=== PATIENT | male | born 1995 | race Caucasian/White ===

== ENCOUNTER 2023-07-07 08:06 | Outpatient (AMB) | payer BC, SELFPAY ==
--- NOTE | 2023-07-07 08:18 | MHC.PC.OV ---
Vital Signs 07/07/23 08:21 Height 5 ft 8 in Weight 199 lb BMI 30.3 BP 130/84 Blood Pressure Location Lt brachial Position Sitting Pulse 55 Pulse Source Pulse Oximeter Pulse Oximetry (%) 98 Oxygen Delivery Method Room Air Intake Visit Reasons: Annual PE Intake Note: Patient here for physical exam. Allergies No Known Allergies Allergy (Verified 07/07/23 08:43) Medication List - Last Reconciled 07/07/23 by VIKRAM Mccall No Known Home Meds Tobacco use date assessed: 07/07/23 Dental Screening Dental Screen Date: 07/07/23 Did you have a dental visit in the last 12 months?: Yes Did you have a dental problem in the last 6 months where you did not have access to dental care?: No Was dental information given to patient?: Patient has dentist HPI Annual PE HPI Details Pt is here for a PE. Will order labs. 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 1. Little interest or pleasure in doing things: not at all 2. Feeling down, depressed, or hopeless: several days 3. Trouble falling or staying asleep, or sleeping too much: not at all 4. Feeling tired or having little energy: more than half the days 5. Poor appetite or overeating: not at all 6. Feeling bad about yourself - or that you are a failure or have let yourself or your family down: more than half the days 7. Trouble concentrating on things, such as reading the newspaper or watching television: not at all 8. Moving or speaking so slowly that other people could have noticed. Or the opposite - being so fidgety or restless that you have been moving around a lot more than usual: not at all 9. Thoughts that you would be better off or of hurting yourself in some way: not at all Total score: 5 Depression Screening Interpretation: Negative Depression Screening Done: Yes 15268 - PHQ-9 Billing: Yes Source: Developed by Drs. Javier Rosenberg, Aissatou Ayon, Du Weheler and colleagues, with an educational vandana from [employer]. Thrive Questionnaire Date Thrive assessed: 07/07/23 I am a: Patient What is your living situation today?: I have a steady place to live Within the past 12 months, did the food you bought not last and you didn't have the money to get more?: Never true Within the past 12 months, did you worry whether your food would run out before you got money to buy more?: Never true Do you have trouble paying for medicines?: No Do you have trouble getting transportation to medical appointments?: No Do you have trouble paying your heating and electricity bill?: No Do you have trouble taking care of your child, family member or friend?: No Do you have trouble with day-to-day activities such as bathing, preparing meals, shopping, managing finances, etc.?: No Are you currently unemployed and looking for a job?: No Are you interested in more education?: No Currently or been in a relationship where the following occur: I choose not to answer this question THRIVE Score: 0 AUDIT C Alcohol Use Questionnaire (AUDIT-C) 1. How often do you have a drink containing alcohol?: 2-3 times a week 2. How many drinks containing alcohol do you have on a typical day when you are drinking?: 3 or 4 3. How often do you have six or more drinks on one occasion?: Never Total Score: 4 Score Reviewed/Action Taken: No CIELO-7 AMB Questionnaire CIELO-7 Date CIELO - 7 assessed: 07/07/23 Feeling nervous, anxious, or on edge: 0 = Not at all Not being able to stop or control worryin = Not at all Worrying too much about different things: 1 = Several days Trouble relaxin = Several days Being so restless that it is hard to sit still: 0 = Not at all Becoming easily annoyed or irritable: 1 = Several days Feeling afraid as if something awful might happen: 0 = Not at all Total CIELO-7 score (0-4 normal; 5-9 mild; 10-14 moderate; 15-21 severe): 3 Source: Developed by Drs. Javier Rosenberg, Aissatou Ayon, Du Wheeler and colleagues, with an educational vandana from [employer]. CIELO-7 Assessment Billing CIELO-7 Assessment Tool: CIELO-7 Assessment 19774 Review of Systems Const Denies chills and Denies fever(s) Eyes Denies blurry vision ENT Denies vertigo, Denies dizziness and Denies sore throat Card Denies chest pain at rest, Denies chest pain with activity, Denies diaphoresis, Denies dyspnea and Denies dyspnea on exertion Resp Denies cough, Denies dyspnea, Denies dyspnea on exertion and Denies wheezing GI Denies abdominal pain, Denies melena, Denies hematochezia, Denies constipation, Denies diarrhea and Denies loose stools Denies hematuria Musc Denies numbness and Denies tingling Skin/Breast Denies lesions Neuro Denies vertigo, Denies dizziness, Denies numbness and Denies tingling Psych Denies anxiety, Denies depression, Denies homicidal ideation, Denies suicidal ideation and Denies other (substance abuse) Aller/Immun Denies wheezing Physical exam (Primary Care) Vital Signs: Last Vital Signs Pulse 55 07/07/23 08:21 BP 130/84 07/07/23 08:21 Pulse Ox 98 07/07/23 08:21 Oxygen Delivery Method Room Air 07/07/23 08:21 BMI result Body Mass Index 30.3 Tobacco/Smoking Status: Tobacco use Status Tobacco use date assessed 07/07/23 07/07/23 08:25 Patient Tobacco Use Status Never used Tobacco 07/07/23 08:19 e-Cigarette/Vaping Use Never Used 07/07/23 08:19 PHQ-9: PHQ-9 Score PHQ-9: Total score 5 07/07/23 08:29 Depression Screening Interpretation: Negative Thrive Assessment: Date of Thrive Assessment Date Thrive assessed 07/07/23 07/07/23 08:25 Currently or been in a relationship where the following occur: I choose not to answer this question Const General: cooperative Nutritional Appearance: well nourished Orientation/consciousness: patient oriented x3 HENMT Head: Yes normal to inspection, Yes normocephalic and Yes atraumatic Ears: TM's normal bilaterally Eyes General: appearance normal, both eyes and all related structures Alignment and Position: alignment normal and position normal Neck Neck: Yes normal visual inspection and Yes no lymphadenopathy Thyroid: Thyroid normal Resp Effort & Inspection: normal respiratory effort Auscultation: clear to auscultation bilaterally Cardio Rate: regular rate Rhythm: regular rhythm Heart sounds: S1 normal heart sound present, S2 normal heart sound present and no murmurs GI Palpation (GI): Soft to palpation and nontender Auscultation: normal bowel sounds Male General Exam: Yes normal external exam Penis: normal penis Scrotum: scrotum normal, testes descended bilaterally and no inguinal hernias Testes: no testicular mass Skin Rashes: no rashes Neuro General: patient oriented x3, moves all extremities, no focal motor deficits and deep tendon reflexes 2+ bilaterally Romberg Test: Negative Psych Appearance: grossly normal Mental Status: mental status grossly normal Speech and movement: Normal speech and movement present Affect: normal affect Attitude: cooperative Thought process: Normal thought process present Thought content: Normal thought content present Insight: Good insight present (Psych) Judgement: Good judgement present (Psych) Assessment and Plan Assessment & Plan (1) Physical exam: Code(s): Z. - Encounter for general adult medical examination without abnormal findings Plan: Labs ordered Plan The patient agreed to the use of a medical illustrator for this encounter. Scribed for VIKRAM [place] by Marilu Witt medical illustrator, on 07/07/2023 at 08:30 EST. Orders: Orders Complete Blood Count Auto Diff Today Z00.00 - Encounter for general adult medical examination without abnormal findings Comprehensive [place]. Panel Fast Today Z00.00 - Encounter for general adult medical examination without abnormal findings TSH reflex Free T4 Today Z00.00 - Encounter for general adult medical examination without abnormal findings UA CC w/rflx Micro + Cult Today Z00.00 - Encounter for general adult medical examination without abnormal findings Lipid Panel Today Z00.00 - Encounter for general adult medical examination without abnormal findings Coding Level of Care Code Est Pt Prev Care 18-39y(36785) Diagnoses Physical exam Z00. Additional Codes CIELO-7 Assessment Billing - CIELO-7 Assessment Tool: CIELO-7 Assessment 69827 ([id number])
[2023-07-07 08:21] VITALS: BP 130/84; PULSE 55; O2SAT 98; BMI 30.3
== END 2023-07-07 08:38 | disposition home or self-care (01) ==
PROVIDERS: Visit Provider Nurse Practitioner Family
DX: Z00.00 Encounter for general adult medical examination without abnormal findings (principal)
CPT/HCPCS: 99395

== ENCOUNTER 2024-04-17 07:30 | Outpatient (AMB) | payer BC, SELFPAY ==
--- NOTE | 2024-04-17 07:33 | MHC.OFFVIS ---
Intake Visit Reasons: Discuss depression iPhone Allergies No Known Allergies Allergy (Verified 07/07/23 08:43) Medication List - Last Reconciled 04/17/24 by MARIELLE Mccall sertraline 25 mg PO DAILY HPI HPI Discuss depression [place] [phone]: Details: History of Present Illness The patient is a 28-year-old male presenting with ongoing Major Depressive Disorder. 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 These stressors have contributed to the exacerbation of his depression. In the last month, the patient experienced suicidal ideation, prompting an increase in the frequency of his therapy sessions from biweekly to weekly. The patient denies any active suicidal or homicidal ideation at present. He has spoken with his therapist about possibly starting medication. Currently, the patient holds numbers for crisis lines and is considering inpatient care, particularly for first responders like himself, which he has been discussing with his therapist. Review of Systems - Psychiatric: Reports stress related to work and family responsibilities; denies active suicidal ideation; denies homicidal ideation. - General: Denies fever and chills. - Respiratory: Denies shortness of breath. - Cardiovascular: Denies chest pain. PE -no current acute distress noted A+Ox3 Plan - Initiate a low dose of sertraline for management of Major Depressive Disorder. - Continue current therapy sessions on a weekly basis. - Plan a follow-up telehealth appointment in approximately six weeks to two months. - Provide the patient with crisis line numbers for emergencies and reinforce their use if needed. - Encourage ongoing discussions with the patient's therapist regarding potential inpatient care, especially focusing on options for first responders. Patient was informed and verbally consented to the use of an ambient scribe for clinic note documentation during this visit. Discussion Notes I discussed with the patient the initiation of sertraline at a low dose to manage his depression symptoms. The benefits of medication, including mood stabilization and reduction in depressive symptoms, were discussed. I informed him of the potential side effects, such as gastrointestinal upset, and the possibility of gradual dose adjustments. We talked about the importance of maintaining regular therapy sessions and utilizing crisis lines if necessary. I recommended considering inpatient care tailored for first responders and advised him to continue discussing these options with his therapist. We agreed on a follow-up telehealth appointment within six weeks to two months to reassess and adjust the treatment plan as required. Patient Instructions - Start taking sertraline as prescribed. - Continue attending weekly therapy sessions. - Call crisis lines if experiencing suicidal thoughts or in distress. - Discuss the potential for inpatient care with your therapist. - Schedule a follow-up telehealth appointment in six to eight weeks. - Monitor for side effects and report any concerns. 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 ) Cognitive needs: No Hearing needs: No Vision needs: No Telehealth Telehealth Telehealth Platform: [employer] Location of provider rendering services: practice address Location of patient: address on file Patient Identification confirmed using: Name, : Yes Telehealth method: video Patient verbally consented to treatment: Yes Patient verbally consented to billing insurance company: Yes Patient informed of any privacy concerns related to visit: Yes Minutes spent on Phone/Video with Pt.: 15 Assessment & Plan Assessment & Plan (1) Depression: Code(s): F32.A - Depression, unspecified Category: Medical Plan . Medications: New sertraline 25 mg PO DAILY 30 tabs 3RF Coding Level of Care Code Tele Est Pt Level 3 (50344) Diagnoses Depression F32.A
--- OUTSIDE RECORDS SUMMARY | 2024-04-17 07:33 | XMS_ITS | Clinical Summary ---
Author Organization [facility] Address [address] [place] [phone] Phone Care Team Providers Care Show Dog Trainer Name Role Phone Unavailable Primary Care Provider Unavailabl e Allergies No known active allergies Medications No known medications Immunizations Immunization Administration Dates Next Due DTaP 06/22/2001, 8,01/10/1997, 997,1996 HPV Vaccine 9 Valent 06/30/2015,10/22/2014 HPV, Quadrivalent 10/19/2013 Hep B, ped/adol 04/12/1997,1996,1996 Hib (PRP-T) 10/24/1997, 7,1996, 997 IPV 06/22/2001,1996,1996 Influenza, intranasal, trivalent 11/18/2009 MMR 06/22/2001,10/24/1997 Meningococcal Conj (Menactra) MCV4P 10/19/2013,0 10/25/2008 OPV 07/09/1997 PPD Test 05/17/2017,04/21/2017 Tdap 10/25/2008 Varicella 10/25/2008,07/09/1997 Family History Relation Name Status Comments Father Alive Father's Brother Alive Maternal Grandmother Alive Mother Alive Mother: allergi es, mouth lymphoma (now resolved), migraine. Adopted, so bio family hx not available Other 1 Alive Other 2 Alive Other 3 Alive Other 4 Alive allergies, mout h lymphoma (now resolved), migraine. Adopted, so bio family hx not available Other 5 Alive kidney issue ([facility]) Social History Tobacco Use Types Packs/Day Years Used Date Smoking Tobacco: Never Assessed Sex and Gender Information Value Date Recorded Sex Assigned at Not on file Legal Sex Male 11:13 PM EST Gender Identity Not on file Sexual Orientation Not on file Last Filed Vital Signs Vital Sign Reading Time Taken Comments Blood Pressure 118/62 07/02/2016 12:00 AM EDT Pulse 77 07/02/2016 12:00 AM EDT Temperature 37.2 ??C (98.9 ??F) 05/17/2017 11:13 AM E DT Respiratory Rate - - Oxygen Saturation 96% 05/19/2016 12:00 AM EDT Inhaled Oxygen Concentration - - Weight 89.6 kg (197 lb 9.6 oz) 07/02/2016 12:00 AM EDT Height 175.3 cm (5' 9 ) 07/02/2016 12:00 AM EDT Body Mass Index 29.18 07/02/2016 12:00 AM EDT Plan of Treatment Health Maintenance Due Date Last Done Comments DTaP,Tdap,and Td Vaccines (7 - Td or Tdap) 10/25/2018 10/25/2008, 06/22/2001, 12/31/1997, Additional history exists Influenza Vaccines (#1) 2023 11/18/2009 COVID-19 Vaccine ( season) 2023 Hepatitis B Vaccines Completed 04/12/1997, 1996, 1996 HIB Vaccines Completed 10/24/1997, 12/29, 1996, Additional history exists IPV Vaccines Completed 06/22/2001, 06/28, 1996, Additional history exists MMR Vaccines Completed 06/22/2001, 10/24/1997 Varicella Vaccines Completed 10/25/2008, 07/09/1997 Meningococcal Vaccine Completed 10/19/2013, 009 HPV Vaccines Completed 06/30/2015, 09/29, 10/19/2013 Hepatitis A Vaccines Aged Out No long er eligible based on patient's age to complete this topic Men B Vaccine Aged Out No longer elig ible based on patient's age to complete this topic Pneumococcal Vaccine Aged Out No long er eligible based on patient's age to complete this topic
== END 2024-04-17 07:48 | disposition home or self-care (01) ==
LOC: HO.HMCC 07:31
PROVIDERS: PCP Nurse Practitioner Family; Visit Provider Nurse Practitioner Family
DX: F32.A Depression, unspecified (principal)

== ENCOUNTER → 2024-04-17 07:30 | Outpatient (BNVA) | payer BC, SELFPAY | PROVIDERS: PCP Nurse Practitioner Family; Visit Provider Nurse Practitioner Family ==

== ENCOUNTER 2024-05-31 07:37 | Outpatient (AMB) | payer BC, SELFPAY ==
--- OUTSIDE RECORDS SUMMARY | 2024-05-31 07:40 | XMS_ITS | Clinical Summary ---
Author Organization [facility] Address [address] [place] [phone] Phone Care Team Providers Care Coal Handler Name Role Phone Unavailable Primary Care Provider [...]
--- OUTSIDE RECORDS SUMMARY | 2024-05-31 07:40 | XMS_ITS | Encounter Summary ---
Author Organization [facility] Address [address] [place] [phone] Phone Care Team Providers Care Single Resource Boss Name Role Phone Jovan Gupta MD Primary Care Provider Unavailabl e Encounter Details Date Type Department Care Team (Late st Contact Info) Description 10/06/2016 Conversion Encounter [facility] - [address], [address] [place] [address] Jovan Gupta MD Social History Tobacco Use Types Packs/Day Years Used Date Smoking Tobacco: Never Assessed Sex and Gender Information Value Date Recorded Sex Assigned at Not on file Legal Sex Male 11:13 PM EST Gender Identity Not on file Sexual Orientation Not on file documented as of this encounter Plan of Treatment Not on file documented as of this encounter Visit Diagnoses Not on filedocumented in this encounter Care Teams Single Resource Boss Relationship Specialty Start Date End Date Jovan Gupta MD PCP - General 04/20/16 08/24/20 documented as of this encounter
--- NOTE | 2024-05-31 07:59 | MHC.PC.OV ---
Intake Visit Reasons: 6 weeks f/up-telehealth Allergies No Known Allergies Allergy (Verified 05/31/24 07:59) Medication List - Last Reconciled 05/31/24 by MARIELLE Mccall sertraline 25 mg PO DAILY Tobacco use date assessed: 07/07/23 Dental Screening Dental Screen Date: 07/07/23 HPI 6 weeks f/up-telehealth HPI Details History of Present Illness The patient is a 28-year-old male presenting for follow-up on Major Depressive Disorder. The patient was initially managed with sertraline due to depressive symptoms for three weeks and has since denied experiencing any suicidal or homicidal ideations. He discontinued the medication, attributing the lapse to forgetfulness due to extensive work commitments. The patient did notice an improvement in his depressive symptoms while on sertraline but ceased therapy prematurely. He acknowledges the importance of taking the medication regularly and has devised strategies such as carrying extra medication to work to facilitate adherence. A regimen of sertraline 25 mg will be resumed, with plans for reassessment in two months. Review of Systems - Psychological: Denies any suicidal ideation. Denies any homicidal ideation. Plan The patient will be restarted on sertraline at a dose of 25 mg for the management of Major Depressive Disorder. This decision is based on the initial positive response noted before the discontinuation of the medication. The importance of adherence to the regimen has been thoroughly discussed, and strategies such as keeping an extra supply at work have been suggested to assist in compliance. A follow-up appointment is arranged in two months to evaluate the response to the therapy and ensure the patient's continued progress. Discussion Notes During the consultation, I engaged with the patient regarding the management of Major Depressive Disorder with sertraline. We discussed the positive response he initially experienced with the medication, the reasons for discontinuation, and the importance of adherence to therapy. I ensured the patient understood the plan to resume sertraline at 25 mg and the strategies proposed to aid in maintaining a consistent medication routine. Furthermore, the plan includes a follow-up in two months to monitor progress and make necessary adjustments. The patient was informed to seek medical care should he experience any changes in his mental health status, especially the emergence of suicidal or homicidal ideations. Patient Instructions - Take sertraline 25 mg daily as prescribed. - Make efforts to remember your medication by placing it in a visible area at home and taking extras to work if necessary. - Follow up in two months for evaluation. - If any suicidal or homicidal thoughts occur, seek immediate medical attention. - Report any side effects or concerns with the medication. 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 Javier Rosenberg, Aissatou Ayon, Du Wheeler and colleagues, with an educational vandana from [employer]. Physical exam (Primary Care) Tobacco/Smoking Status: Tobacco use Status Tobacco use date assessed 07/07/23 07/07/23 08:25 Patient Tobacco Use Status Never used Tobacco 07/07/23 08:19 e-Cigarette/Vaping Use Never Used 07/07/23 08:19 Thrive Assessment: Date of Thrive Assessment Date Thrive assessed 07/07/23 07/07/23 08:25 Telehealth Telehealth Telehealth Platform: [facility] Location of provider rendering services: practice address Location of patient: address on file Patient Identification confirmed using: Name, : Yes Telehealth method: video Patient verbally consented to treatment: Yes Patient verbally consented to billing insurance company: Yes Patient informed of any privacy concerns related to visit: Yes Minutes spent on Phone/Video with Pt.: 10 Coding Level of Care Code Tele Est Pt Level 3 (79177) Diagnoses Depression F32.A Assessment & Plan Assessment & Plan (1) Depression: Code(s): F32.A - Depression, unspecified Category: Medical Plan .
== END 2024-05-31 08:25 | disposition home or self-care (01) ==
LOC: HO.HMCC 07:38
PROVIDERS: PCP Nurse Practitioner Family; Visit Provider Nurse Practitioner Family
DX: F32.A Depression, unspecified (principal)

== ENCOUNTER → 2024-08-23 07:02 | Outpatient (BNVA) | payer BC, SELFPAY | PROVIDERS: PCP Nurse Practitioner Family; Visit Provider Nurse Practitioner Family | DX: Z13.89 Encounter for screening for other disorder (principal) ==

== ENCOUNTER 2024-12-20 20:43 | Emergency (ER) | payer BC, SELFPAY ==
[2024-12-20 20:54] VITALS: BP 143/84; PULSE 108; RESP 16; TEMP 36.6; O2SAT 99; BMI 27.4
--- NOTE | 2024-12-20 21:31 | ED.GENADULT ---
HPI - General Adult General Chief complaint: Psychiatric Symptoms Stated complaint: [employer] member mental lalitha & PSTD requesting eval Time Seen by Provider: 12/20/24 21:26 Source: patient Mode of arrival: ambulatory Limitations: no limitations History of Present Illness ED Provider: John SANTO HPI narrative: Patient is a 29-year-old male with a history of depression presenting to the ED for evaluation of increased depression. The patient has recently bled through a ?messy divorce? and has been working increased hours to meet his child's poor obligation. 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 The patient was noted to be crying at work today, patient called his counselor and made an appointment at 07:45 tomorrow morning, however the patient's chief recommended patient come to the ED for evaluation. Patient has no acute somatic complaints. Related Data Previous Rx's ?Medication ?Instructions ?Recorded sertraline 100 mg tablet 100 mg PO DAILY #90 tabs 08/17/24 Allergies Allergy/AdvReac Type Severity Reaction Status Date / Time No Known Allergies Allergy Verified 12/20/24 21:06 Review of Systems Review of Systems: Yes all other systems are reviewed and are negative PMF Family History Family History (Reviewed 07/07/23 @ 08:30 by Chau Delacruz [facility]) Mother Mental health disorder Social History Social History Housing: [place] Patient Tobacco Use Status: Never used Tobacco e-Cigarette/Vaping Use: Never Used Second Hand Smoke Exposure: Yes (form fires) Advance Directives: No Advance Directives Information Provided: No Do you have a plan to hurt others: No Plan Current occupational status: employed Current occupation: [employer], [place] 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 Vital signs as documented. HEAD: Atraumatic, normocephalic. EYES: EOMs grossly intact, pupils equal, conjunctiva clear, no exudate. ENT: Nares patent, no discharge. Airway patent, no audible stridor, visible mucosa is pink and moist without noted lesions. NECK: trachea is midline, no obvious masses or gross abnormalities. CHEST: Symmetric movement, normal appearance. LUNGS: Non-labored work of breathing. CARDIAC: No evidence of hypoperfusion. ABDOMEN: Nondistended, no obvious injury. : Deferred. EXTREMITIES: Moves all extremities spontaneously without reported pain. No obvious injury or deformity noted. NEURO: Alert and oriented x3, CN II-XII appear grossly intact. Cerebellar Functioning grossly intact. Speech clear and appropriate. PSYCH: Depressed affect, but otherwise appropriate eye contact, fluid speech, with appropriate response to questioning. No reported suicidality or homicidality. Patient does not appear to be responding to internal stimuli. SKIN: Warm, dry, color appropriate. No rashes or lesions noted. Medications Administered Generic Name Dose Route Start Last Admin Trade Name Freq PRN Reason Stop Dose Admin Nicotine Polacrilex 2 mg 12/20/24 22:14 12/20/24 22:27 Nicotine Polacrilex 2 Mg Gum BUCCAL 2 mg Q2H PRN Administration Nicotine Cravings Discontinued Medications Generic Name Dose Route Start Last Admin Trade Name Freq PRN Reason Stop Dose Admin Lorazepam 1 mg 12/20/24 22:14 12/20/24 22:27 Lorazepam 1 Mg Tablet PO 12/20/24 22:15 1 mg ONCE ONE Administration Medical Decision Making Medical Decision Making MDM Narrative: 9:32 PM 12/20/2024 (Marlo SANTO): Patient is a 29-year-old male with a history of depression presenting to the ED for evaluation of increased depression. The patient has recently bled through a ?messy divorce? and has been working increased hours to meet his child's poor obligation. 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 The patient was noted to be crying at work today, patient called his counselor and made an appointment at 07:45 tomorrow morning, however the patient's chief recommended patient come to the ED for evaluation. Patient has no acute somatic complaints. The patient's exam is benign. The patient will be evaluated by crisis and pending clearance will be discharged to follow up with his counselor tomorrow morning as planned. 10:53 PM 12/20/2024 (Marlo SANTO): Patient has been evaluated and cleared by the crisis team, patient will be discharged to the care of his girlfriend who was picking him up, patient states he will follow up with his counselor tomorrow morning. Admission/Observation Consideration of admission/observation: Escalation of care including admission/observation considered Consult Healthcare Provider Management of the patient was discussed with: Glazier Artist (Care team) Lab Data MDM Lab Attestation statement: I reviewed the patient's lab results. 12/20/24 21:44 12/20/24 21:44 Labs: Lab Results 12/20/24 12/20/24 Range/Units 21:17 21:44 WBC 7.7 (4.8-10.8) X10*3/uL RBC 5.20 (4.60-5.80) X10*6/uL Hgb 15.1 (14.0-18.0) g/dl Hct 42.5 (42.0-52.0) % MCV 81.7 (80.0-98.0) fL MCH 29.0 (27.0-33.0) pg MCHC 35.5 (31.0-36.0) g/dl RDW 12.1 (11.0-16.0) % Plt Count 278 (160-400) X10*3/uL MPV 8.9 L (9.4-12.4) fL Immature Gran % (Auto) 0.3 (0.0-0.4) % Neut % (Auto) 56.7 (45-73) % Lymph % (Auto) 32.4 (20-40) % Carson % (Auto) 9.1 (2-11) % Eos % (Auto) 1.0 (0-4) % Baso % (Auto) 0.5 (0-2) % Lymph # (Auto) 2.5 (1.2-4.9) X10*3/uL Carson # (Auto) 0.7 (0.1-1.2) X10*3/uL Eos # (Auto) 0.1 (0.0-0.4) X10*3/uL Baso # (Auto) 0.0 (0.0-0.2) X10*3/uL Abs Immat Gran (auto) 0.02 (0.00-0.03) X10*3/uL Absolute Neuts (auto) 4.4 (2.0-8.3) x10*3/uL Absolute Nucleated RBC 0.000 (0.0-0.012) X10*3/uL Nucleated RBC % (auto) 0.0 (0.0-0.2) /100WBC Sodium 141 (135-145) mmol/L Potassium 4.1 (3.3-5.1) mmol/L Chloride 109 H (96-108) mmol/L Carbon Dioxide 24 (22-29) mmol/L Anion Gap 12 (12-20) BUN 15 (9-16) mg/dL Creatinine 0.96 (0.5-1.4) mg/dL Estim Creat Clear Calc 115.7 Estimated GFR > 60 Random Glucose 91 (60-115) mg/dL Calcium 9.2 (8.4-10.2) mg/dL Total Bilirubin 0.4 (0.0-1.0) mg/dL AST 22 (5-37) U/L ALT 28 (0-40) U/L Alkaline Phosphatase 63 (39-117) U/L Total Protein 7.4 (6.5-8.0) g/dL Albumin 4.8 (3.5-5.0) g/dL Urine Opiates Screen Not Detected (Not Detect) Ur Buprenorphine Scrn Not Detected (Not Detect) ng/mL Ur Oxycodone Screen Not Detected (Not Detect) ng/mL Urine Methadone Screen Not Detected (Not Detect) ng/mL Urine Fentanyl Screen Not Detected (Not Detect) Ur Barbiturates Screen Not Detected (Not Detect) Ur Phencyclidine Scrn Not Detected (Not Detect) Ur Amphetamines Screen Not Detected (Not Detect) U Benzodiazepines Scrn Not Detected (Not Detect) Urine Cocaine Screen Not Detected (Not Detect) U Marijuana (THC) Screen Not Detected (Not Detect) Ethyl Alcohol 11 mg/dL Discharge Plan Discharge Clinical Impression: Depression Patient Disposition: Home, Self-Care Instructions: Depression (ED) Additional Instructions: Thank you for choosing [facility] Emergency Department for your care today. Your evaluated by our mental health care team today regarding your increased depression and stress. At this time there is no indication for admission to the hospital or continued ED observation, and it is safe to discharge you home. Please follow up with the your counselor at your scheduled appointment at 07:45 tomorrow morning. Please adhere to all recommendations made by our care team and your counselor. Please continue taking all your medications as prescribed. Please call your counselor or return to the ED immediately if you have any thoughts of harming yourself or others. Please also follow up with your primary care physician for re-evaluation, additional management of your symptoms, and continued preventative care. If you do not have a primary care physician, please call the [facility] at [phone] to establish a new primary care physician. While waiting to establish your new primary care physician, you can call our [facility] at [phone] for non-emergency needs. Please return to the emergency department if you develop a severe or sudden change in your symptoms, a fever over 100.4 that does not improve with Tylenol or Ibuprofen, recurrent vomiting, or any other new or worsening symptoms or concerns. Prescriptions: No Action sertraline 100 mg tablet 100 mg PO DAILY Qty: 90 1RF Referrals: Chau Delacruz FNP-[facility] [Primary Care Provider, Internal Medicine] Clinical Impression: Depression Print Language: Turkmen
[2024-12-20 21:39] LABS: Cannabinoid Screen Urine Not Detected (Not Detect)
[2024-12-20 21:52] LABS: MANUAL DIFF FLAG NO
--- OUTSIDE RECORDS SUMMARY | 2024-12-20 21:52 | XMS_ITS | Encounter Summary ---
Author Organization [facility] Address [address] [place] [phone] Phone Care Team Providers Care Back Hanger Name Role Phone Jovan Gupta MD Primary Care Provider Unavailabl e Encounter Details Date Type Department Care Team (Late st Contact Info) Description 10/06/2016 Conversion Encounter [facility] - [address], [address] [place] [address] Jovan Gupta MD Social History Tobacco Use [...] on filedocumented in this encounter Care Teams Back Hanger Relationship Specialty Start Date End Date Jovan Gupta MD PCP - General 04/20/16 08/24/20 documented as of this encounter
--- OUTSIDE RECORDS SUMMARY | 2024-12-20 21:52 | XMS_ITS | Clinical Summary ---
Author Organization [facility] Address [address] [place] [phone] Phone Care Team Providers Care Erco Machine Operator Name Role Phone Unavailable Primary Care Provider [...] 77 07/02/2016 12:00 AM EDT Temperature 37.2 C (98.9 F) 05/17/2017 11:13 AM EDT Respiratory Rate - - Oxygen Saturation 96% [...] 12/31/1997, Additional history exists Influenza Vaccines (#1) 2024 11/18/2009 COVID-19 Vaccine ( season) 2024 Hepatitis B Vaccines Completed 04/12/1997, 1996, 1996 [...]
[2024-12-20 22:01] LABS: Hematocrit 42.5 % (42.0-52.0); Hemoglobin 15.1 g/dl (14.0-18.0); Imm Gran Abs Auto 0.02 X10*3/uL (0.00-0.03); Imm Gran Pct Auto 0.3 % (0.0-0.4); Lymphocytes Absolute Auto 2.5 X10*3/uL (1.2-4.9); Mean Corpuscular HGB Conc 35.5 g/dl (31.0-36.0); Mean Corpuscular Hemoglobin 29.0 pg (27.0-33.0); Mean Corpuscular Volume 81.7 fL (80.0-98.0); NRBC Abs Auto 0.000 X10*3/uL (0.0-0.012); NRBC Pct Auto 0.0 /100WBC (0.0-0.2); Platelet Count 278 X10*3/uL (160-400); Red Blood Count 5.20 X10*6/uL (4.60-5.80); White Blood Count 7.7 X10*3/uL (4.8-10.8)
[2024-12-20 22:09] LABS: Alanine Aminotransferase 28 U/L (0-40); Albumin Level 4.8 g/dL (3.5-5.0); Alkaline Phosphatase 63 U/L (39-117); Anion Gap 12 (12-20); Aspartate Amino Transferase 22 U/L (5-37); Blood Urea Nitrogen 15 mg/dL (9-16); Calcium 9.2 mg/dL (8.4-10.2); Carbon Dioxide 24 mmol/L (22-29); Chloride 109 mmol/L (96-108); Creatinine Clr Calc Pharmacy 115.7; Estimated Glomerular Filt Rate > 60; Potassium 4.1 mmol/L (3.3-5.1); Sodium 141 mmol/L (135-145); Total Protein 7.4 g/dL (6.5-8.0)
[2024-12-20 23:08] VITALS: BP 128/75; PULSE 70; RESP 17; TEMP 37; O2SAT 97
== END 2024-12-20 23:10 | disposition home or self-care (01) ==
PROVIDERS: Emergency Provider Emergency Medicine; PCP Nurse Practitioner Family
DX: F32.A Depression, unspecified (principal); F43.10 Post-traumatic stress disorder, unspecified
CPT/HCPCS: 36415; 80053; 80307; 85025; 99284; S9485